=== PATIENT | female | born 1955 | race Caucasian/White ===

== ENCOUNTER 2017-01-21 15:24 | Emergency (ER) | payer OTHER ==
[2017-01-21 15:42] VITALS: TEMP 98.2; BMI 23.8
[2017-01-21] MEDS ORDERED: FAMOTIDINE 20 MG/50 ML IVPB 50 ML IVPB ONE ×2 (17:03→17:09)
[2017-01-21] MEDS ORDERED: MAG HYDROX/AL HYDROX/SIMETH 30 ML UNIT-DOSE CUP PO ONE (17:03)
[2017-01-21] MEDS ORDERED: MAG HYDROX/AL HYDROX/SIMETH 30 ML UNIT-DOSE CUP ONE (17:08)
--- NOTE | 2017-01-21 17:10 | PDOC ---
History of Present Illness - General History Source: Patient - History of Present Illness Presenting Symptoms: Chest Pain Timing/Duration: reports: constant Location: reports: substernal Chest Pain Radiation: reports: no radiation <Esme PathakElyseYesica - Last Filed: 01/21/17 18:37> <Marilu Aiken - Last Filed: 01/25/17 15:17> - General Chief Complaint: Chest Pain Stated Complaint: CHEST PAIN Time Seen by Provider: 01/21/17 16:46 Past History - Past Medical History HTN: Yes Hypercholesterolemia: Yes Thyroid Disease: Yes - Psycho/Social/Smoking Cessation Hx Suicidal Ideation: No Smoking History: Never smoked Information on smoking cessation initiated: No Hx Alcohol Use: No Drug/Substance Use Hx: No Substance Use Type: None <Leelee PathakcarloYesica - Last Filed: 01/21/17 18:37> <Marilu Aiken - Last Filed: 01/25/17 15:17> - Past Medical History Allergies/Adverse Reactions: Allergies Allergy/AdvReac Type Severity Reaction Status Date / Time No Known Allergies Allergy Verified 01/21/17 15:28 Home Medications: Ambulatory Orders Esomeprazole Magnesium [Nexium] 0 mg PO ASDIR 01/21/17 Famotidine [Pepcid] 20 mg PO DAILY #14 tablet 01/21/17 Losartan Potassium 25 mg PO ASDIR 01/21/17 Mag Hydrox/Al Hydrox/Simeth [Mylanta Suspension -] 30 ml PO Q6H #1 bottle Simvastatin 0 mg PO ASDIR 01/21/17 Review of Systems - Review of Systems Constitutional: No: Chills, Fever Respiratory: No: Cough, Shortness of Breath Cardiac (ROS): Yes: Chest Pain, Lightheadedness. No: Syncope ABD/GI: No: Constipated, Diarrhea, Nausea, Vomiting : No: Dysuria <BelizeanHoang - Last Filed: 01/21/17 18:37> *Physical Exam - Physical Exam General Appearance: Yes: Appropriately Dressed. No: Apparent Distress HEENT: positive: Normal Voice Neck: positive: Supple Respiratory/Chest: positive: Lungs Clear, Normal Breath Sounds. negative: Respiratory Distress Cardiovascular: positive: Regular Rate, S1, S2 Gastrointestinal/Abdominal: positive: Soft. negative: Tender Extremity: negative: Pedal Edema Integumentary: positive: Dry, Warm Neurologic: positive: Fully Oriented, Alert, Normal Mood/Affect <Hoang Pathak - Last Filed: 01/21/17 18:37> - Vital Signs Last Vital Signs Temp Pulse Resp BP Pulse Ox 98.2 F 88 18 142/86 99 01/21/17 15:27 01/21/17 18:40 01/21/17 18:40 01/21/17 18:40 01/21/17 18:40 Heart Score/ECG Review - History History: Slightly suspicious - Electrocardiogram EKG: Normal - Age Age: 45-65 - Risk Factors Risk Factors Heart Score: Yes Hx Hypertension Based on the list above the patient has:: 1-2 risk factors - Troponin Troponin: </= normal limit - Score Heart Score - Total: 2 <Hoang Pathak - Last Filed: 01/21/17 18:37> <Marilu Aiken - Last Filed: 01/25/17 15:17> - ECG Intrepretation Comment:: 01/21/17 17:21 Twelve-lead EKG was performed and reviewed by me. There is normal sinus rhythm with a normal rate. The axis is normal. The intervals are normal. There are no ST or T wave abnormalities. Impression: Normal twelve-lead EKG (Hoang Pathak) ED Treatment Course - LABORATORY CBC & Chemistry Diagram: 01/21/17 17:00 01/21/17 17:00 <Hoang Pathak - Last Filed: 01/21/17 18:37> - LABORATORY CBC & Chemistry Diagram: 01/21/17 17:00 01/21/17 17:00 <Marilu Aiken - Last Filed: 01/25/17 15:17> - ADDITIONAL ORDERS Additional order review: 01/21/17 17:00 RBC 4.81 MCV 86.9 MCHC 32.6 RDW 14.8 MPV 8.6 Neutrophils % 43.9 Lymphocytes % 42.7 H Monocytes % 9.1 Eosinophils % 3.1 Basophils % 1.2 - Medications Given in the ED: ED Medications Discontinued Medications Generic Name Dose Route Start Last Admin Trade Name Freq PRN Reason Stop Dose Admin Al Hydroxide/Mg Hydroxide 30 ml 01/21/17 17:03 01/21/17 17:15 Mylanta Oral Suspension - PO 01/21/17 17:04 30 ml ONCE ONE Administration Famotidine/Sodium Chloride 50 mls @ 100 mls/hr 01/21/17 17:03 01/21/17 17:15 Pepcid 20 Mg Premixed Ivpb - IVPB 01/21/17 17:32 100 mls/hr ONCE ONE Administration Medical Decision Making <Hoang Pathak - Last Filed: 01/21/17 18:37> <Marilu Aiken - Last Filed: 01/25/17 15:17> - Medical Decision Making 01/21/17 17:03 61-year-old female, history of hypertension, thyroid disease, here complaining of chest pain. Patient reports burning, non-radiating substernal chest pain 2 days, constant, with no exacerbating or alleviating factors. Denies shortness of breath, diaphoresis, nausea, vomiting, palpitations, leg pain or swelling. No history of similar pain in the past. 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 No obvious risk factors for DVT/PE See exam CP Not great story for ACS Endorses neg stress test this year Possible GERD/gastritis given burning sensation Well joaquin and stable w/ unremarkable exam -ekg -cxr -labs -trial of GI cocktail and reassess 01/21/17 17:08 01/21/17 17:10 01/21/17 17:22 01/21/17 18:37 EKG, labs and chest x-ray unremarkable. Patient reports significant improvement with GI cocktail in ED. Given duration of pain, only 1 troponin necessary. Low risk by heart score. Feel comfortable sending patient home with PMD and cards follow-up as needed 01/21/17 18:42 (Hoang Pathak) *DC/Admit/Observation/Transfer <Hoang Pathak - Last Filed: 01/21/17 18:37> <Marilu Aiken - Last Filed: 01/25/17 15:17> Diagnosis at time of Disposition: Chest pain Qualifiers: Chest pain type: unspecified Qualified Code(s): R07.9 - Chest pain, unspecified - Discharge Dispostion Disposition: HOME Condition at time of disposition: Improved - Prescriptions Prescriptions: Mag Hydrox/Al Hydrox/Simeth [Mylanta Suspension -] 30 ml PO Q6H #1 bottle Famotidine [Pepcid] 20 mg PO DAILY #14 tablet - Referrals Referrals: Wan Fournier MD [Primary Care Provider] - - Patient Instructions Printed Discharge Instructions: DI for Atypical Chest Pain Additional Instructions: La causa de luis dolor en el pecho es ms probable que no luis corazn o los pulmones. Víctor la naturaleza ardiente del dolor, es posible que sea gastritis o reflujo cido. Dragoon los medicamentos segn lo indicado y realice un seguimiento con luis PMD y el cardilogo si los sntomas continan. Si los sntomas empeoran en el hogarmarvin a la [place] inmediatamente Print Language: IRISH - Attestations Physician Attestion: I reviewed the case with the mid-level practitioner and agree with the mid- level practitioner's assessment, diagnosis and disposition. (Marilu Aiken)
[2017-01-21 17:15] LABS: BASOPHIL 1.2 % (0-2.0); EOSINOPHIL 3.1 % (0-4.5); MCH 28.3 pg (25.7-33.7); MCHC 32.6 g/dl (32.0-36.0); MEAN CELL VOLUME 86.9 fl (80-96); MEAN PLT VOLUME 8.6 fl (7.5-11.1); NEUTROPHILS 43.9 % (42.8-82.8); PLATELET COUNT 222 K/MM3 (134-434); RDW 14.8 % (11.6-15.6); WHITE BLOOD COUNT 7.6 K/mm3 (4.0-10.0)
[2017-01-21 17:59] LABS: ALBUMIN 3.2 g/dl (3.4-5.0); ANION GAP 5 (8-16); CALCIUM 8.8 mg/dL (8.5-10.1); CO2 30 mmol/L (21-32); GLUCOSE,RANDOM 114 mg/dL (74-106)
[2017-01-21 18:06] LABS: ALK PHOS 141 U/L (45-117); BILIRUBIN,TOTAL 0.3 mg/dL (0.2-1.0); CREATININE 0.7 mg/dL (0.55-1.02); SGOT/AST 14 U/L (15-37); SGPT/ALT 22 U/L (12-78); TOT PROT 6.4 g/dl (6.4-8.2); TROPONIN I < 0.02 ng/ml (0.00-0.05)
[2017-01-21 19:20] VITALS: BP 142/86; PULSE 88
--- NOTE | 2017-01-24 10:45 | EKG ---
Test Reason : Blood Pressure : / mmHG Vent. Rate : 079 BPM Atrial Rate : 079 BPM P-R Int : 166 ms QRS Dur : 086 ms QT Int : 406 ms P-R-T Axes : 060 046 044 degrees QTc Int : 465 ms NORMAL SINUS RHYTHM NORMAL ECG NO PREVIOUS ECGS AVAILABLE Confirmed by VIRGINIA HERRERA MD ([id number]) on 01/24/2017 10:45:29 AM Referred By: Confirmed By:VIRGINIA HERRERA MD
== END 2017-01-21 19:13 | disposition home or self-care (01) ==
LOC: JER 15:24
PROC: 3E033GC Introduction of Other Therapeutic Substance into Peripheral Vein, Percutaneous Approach (ICD-10-PCS; principal; 2017-01-21)
DX: R07.9 Chest pain, unspecified (principal); I10 Essential (primary) hypertension; E07.9 Disorder of thyroid, unspecified
CPT/HCPCS: 36415; 71010-TC; 80053; 82550; 83880; 84484; 85025; 93005; 93010; 96365; 99284-25

== ENCOUNTER 2023-04-05 09:07 | Emergency (ER) | payer OTHER ==
[2023-04-05 09:44] VITALS: BP 107/77; PULSE 80; RESP 18; TEMP 98.7; BMI 26.5
[2023-04-05 11:23] LABS: BASO % 1.3 % (0-2.0); EOS % 2.5 % (0-4.5); HEMATOCRIT 42.2 % (32.4-45.2); HEMOGLOBIN 13.8 GM/dL (10.7-15.3); LYMPH % 36.3 % (8-40); MCH 28.6 pg (25.7-33.7); MCHC 32.7 g/dl (32.0-36.0); MEAN CELL VOLUME 87.5 fl (80-96); MEAN PLT VOLUME 8.1 fl (7.5-11.1); MONO % 8.3 % (3.8-10.2); NEUT % 51.6 % (42.8-82.8); PLATELET COUNT 246 10^3/uL (134-434); RBC 4.83 M/mm3 (3.60-5.2); RDW 14.9 % (11.6-15.6); URINE APPEARANCE CLEAR; URINE BILIRUBIN NEGATIVE (NEGATIVE); URINE COLOR YELLOW; URINE GLUCOSE (UA) NEGATIVE (NEGATIVE); URINE KETONE NEGATIVE (NEGATIVE); URINE LEUK ESTERASE NEGATIVE (NEGATIVE); URINE NITRITE NEGATIVE (NEGATIVE); URINE PROTEIN NEGATIVE (NEGATIVE); URINE UROBILINOGEN 0.2 mg/dL (0.2-1.0); WHITE BLOOD COUNT 5.9 K/mm3 (4.0-10.0)
[2023-04-05 11:57] LABS: POTASSIUM 3.4 mmol/L (3.5-5.1)
[2023-04-05 11:59] LABS: CALCIUM 8.6 mg/dL (8.5-10.1)
[2023-04-05 12:00] LABS: ALBUMIN 3.2 g/dl (3.4-5.0); BLOOD UREA NITROGEN 10.2 mg/dL (7-18)
[2023-04-05] MEDS ORDERED: IBUPROFEN 600 MG TABLET (FP) PO ONE ×2 (12:00→12:04)
[2023-04-05 12:03] LABS: CREATININE 0.7 mg/dL (0.55-1.3)
[2023-04-05 12:05] LABS: BILIRUBIN,TOTAL 0.5 mg/dL (0.2-1); TOT PROT 6.3 g/dl (6.4-8.2)
== END 2023-04-05 12:29 | disposition home or self-care (01) ==
LOC: JER 09:07
DX: R53.1 Weakness (principal); M79.10 Myalgia, unspecified site; M25.561 Pain in right knee; R22.41 Localized swelling, mass and lump, right lower limb; R10.30 Lower abdominal pain, unspecified; R35.0 Frequency of micturition; M19.90 Unspecified osteoarthritis, unspecified site
CPT/HCPCS: 36415; 71045-TC-FY; 80053; 81003; 83735; 84443; 85025; 86618; 93005; 93010; 99285-25